=== PATIENT | male | born 1955 | race African-American/Black ===

== ENCOUNTER 2016-07-30 10:19 | Emergency (ER) | payer OTHER, MEDICARE ==
[~2016-07-30] VITALS: Ht 167.6 cm; Wt 100.9 kg
[~2016-07-30 10:19] MED LIST: ALLOPURINOL100 MG PO; AUGMENTIN875 MG PO; COREG25 M1 PO; COUMADIN4 MG PO; COUMADIN6 MG PO; DIGITEK250 MC2 PO; DIGOXIN250 MCG PO; DOXYCYCLINE HY100 MG PO; EXTRA STRENGTH500 M1 PO; FLEXERIL10 MG PO; FOSINOPRIL SODI20 MG PO; FUROSEMIDE40 MG PO; K-DUR20 MEQ PO; K-TAB10 MEQ PO; LOPRESSOR25 MG PO; METFORMIN HCL500 MG PO; METOLAZONE2.5 MG PO; METOPROLOL TART50 MG PO; POTASSIUM CHLO20 ME1 PO; SIMVASTATIN80 MG PO; SOTALOL80 MG PO; TESSALON PERLE100 MG PO; TYLENOL REGULA325 MG PO; ULTRAM50 MG PO; VITAMIN D1000 INTUN PO; ZITHROMAX500 MG PO
[2016-07-30] MEDS ORDERED: SOTALOL120 MG PO (11:09)
[2016-07-30] MEDS ORDERED: ALL DAY ALLERGY10 M3 PO (11:12)
[2016-07-30] MEDS ORDERED: MEDROL DOSEPAK4 MG PO (12:23)
[2016-07-30 12:32] VITALS: BP 93/58
== END 2016-07-30 12:34 | disposition home or self-care (01) ==
LOC: EME 10:19
DX: M25.531 Pain in right wrist (principal)
CPT/HCPCS: 73110; 99281; 99284; J7512

== ENCOUNTER 2017-03-28 21:22 | Emergency (ER) | payer OTHER, MEDICARE ==
[~2017-03-28] VITALS: Ht 167.6 cm; Wt 95.2 kg
[~2017-03-28 21:22] MED LIST changes: +ALL DAY ALLERGY10 M3 PO; +MEDROL DOSEPAK4 MG PO; +SOTALOL120 MG PO
[2017-03-28 22:45] LABS: HEMATOCRIT 38.7 % (38.0-50.0); MCH 27.2 PG (29.0-34.0); MCV 87.8 FL (86-99); MEAN PLAT.VOLUME 11.6 uM^3 (9.0-12.4); PLATELET COUNT 122 K/uL (156-360); RBC DIS.WIDTH-CV 18.2 % (11.8-14.6); RBC DIS.WIDTH-SD 58.4 % (39-53); RED BLOOD COUNT 4.41 M/uL (4.00-5.50); WHITE BLOOD COUNT 8.4 K/uL (4.1-10.2)
[2017-03-28 22:50] LABS: INTER. NORMALIZED RATIO 2.6
[2017-03-28 22:53] LABS: PTT 35.3 SEC (25-37)
[2017-03-28 23:00] LABS: CHLORIDE 102 mEq/L (99-109); SODIUM 139 mEq/L (136-147)
[2017-03-28 23:01] LABS: GLUCOSE 108 mg/dL (70-99)
[2017-03-28 23:03] LABS: ANION GAP 9 MEQ/L (2-14)
[2017-03-28 23:05] LABS: GFR ESTIMATE (CALCULATED) 42 mL/min/
[2017-03-28 23:06] LABS: UREA NITROGEN (BUN) 36 mg/dL (9-23)
[2017-03-28 23:13] LABS: TROP-I INTERPRETATION NEGATIVE; TROPONIN-I < 0.01 ng/mL (0.0-0.30)
[2017-03-28] MEDS ORDERED: GUAIFEN-CODEINE5 ML PO (23:25)
[2017-03-29 00:07] VITALS: BP 89/65
== END 2017-03-29 00:07 | disposition home or self-care (01) ==
LOC: EME 21:22
DX: R05 Cough (principal); J02.9 Acute pharyngitis, unspecified; R09.89 Other specified symptoms and signs involving the circulatory and respiratory systems; I10 Essential (primary) hypertension; E78.5 Hyperlipidemia, unspecified; E11.9 Type 2 diabetes mellitus without complications; Z79.84 Long term (current) use of oral hypoglycemic drugs; Z79.01 Long term (current) use of anticoagulants; Z95.811 Presence of heart assist device; Z87.891 Personal history of nicotine dependence
CPT/HCPCS: 71020; 80048; 80162; 83880; 84484; 85027; 85610; 85730; 99281; 99284; J1940

== ENCOUNTER 2017-04-04 15:22 | Inpatient (IN) | payer OTHER, MEDICARE ==
[~2017-04-04] VITALS: Ht 167.6 cm; Wt 94.6 kg
[~2017-04-04 15:22] MED LIST changes: +GUAIFEN-CODEINE5 ML PO
[2017-04-04] MEDS ORDERED: METFORMIN HCL500 MG PO (16:01)
[2017-04-04 16:59] LABS: HEMATOCRIT 33.5 % (38.0-50.0); MCH 27.6 PG (29.0-34.0); MCHC 31.9 G/DL (30.0-36.0); MCV 86.6 FL (86-99); MEAN PLAT.VOLUME 11.3 uM^3 (9.0-12.4); PLATELET COUNT 137 K/uL (156-360); RBC DIS.WIDTH-SD 56.7 % (39-53); RED BLOOD COUNT 3.87 M/uL (4.00-5.50); WHITE BLOOD COUNT 7.9 K/uL (4.1-10.2)
[2017-04-04 17:09] LABS: CHLORIDE 99 mEq/L (99-109); POTASSIUM 5.8 mEq/L (3.7-5.4); SODIUM 134 mEq/L (136-147)
[2017-04-04 17:11] LABS: GLUCOSE 112 mg/dL (70-99)
[2017-04-04 17:12] LABS: ANION GAP 13 MEQ/L (2-14)
[2017-04-04 17:14] LABS: ALKALINE PHOSPHATASE 86 IU/L (3-129)
[2017-04-04 17:15] LABS: GFR ESTIMATE (CALCULATED) 20 mL/min/
[2017-04-04 17:17] LABS: UREA NITROGEN (BUN) 99 mg/dL (9-23)
[2017-04-04 17:18] LABS: LIPASE 65 U/L (1.0-51.0)
[2017-04-04 17:20] LABS: TROP-I INTERPRETATION NEGATIVE; TROPONIN-I < 0.01 ng/mL (0.0-0.30)
[2017-04-04] MEDS ORDERED: COUMADIN2 MG PO (17:49)
[2017-04-04] MEDS ORDERED: POTASSIUM CHLO20 ME1 PO (17:51)
[2017-04-04] MEDS ORDERED: CODEINE-GUAIFE120 ML PO (17:55)
[2017-04-04 22:11] LABS: INTER. NORMALIZED RATIO 3.6; PROTHROMBIN TIME 41.5 SEC (10.2-12.9)
[2017-04-05] VITALS (8 sets, daily range): BP systolic 82–143; BP diastolic 50–69
[2017-04-05 03:25] LABS: ADD MIUA? YES; BILIRUBIN NEGATIVE; BLOOD NEGATIVE; COLOR YELLOW ((YELLOW)); GLUCOSE (STRIP) NEGATIVE; KETONES NEGATIVE; LEUKOCYTES NEGATIVE; NITRITE NEGATIVE; PROTEIN (STRIP) NEGATIVE; SPECIFIC GRAVITY 1.014 (1.000-1.030)
[2017-04-05 05:02] LABS: BACTERIA RARE /HPF; EPITHELIAL CELLS RARE /HPF; HYALINE CASTS 15-20 /LPF; MUCUS TRACE /LPF; RED BLOOD CELLS 0-5 /HPF (0-5); UCUL ADDED? NO; UNCLASSIFIED CASTS 0-5 /LPF; WHITE BLOOD CELLS 0-5 /HPF (0-5)
[2017-04-05 05:51] LABS: HEMATOCRIT 34.2 % (38.0-50.0); MCH 27.8 PG (29.0-34.0); MCHC 31.9 G/DL (30.0-36.0); MCV 87.2 FL (86-99); MEAN PLAT.VOLUME 12.2 uM^3 (9.0-12.4); PLATELET COUNT 135 K/uL (156-360); RBC DIS.WIDTH-CV 18.3 % (11.8-14.6); RBC DIS.WIDTH-SD 58.2 % (39-53); RED BLOOD COUNT 3.92 M/uL (4.00-5.50); WHITE BLOOD COUNT 8.1 K/uL (4.1-10.2)
[2017-04-05 06:20] LABS: GLUCOSE 109 mg/dL (70-99)
[2017-04-05 06:21] LABS: ANION GAP 12 MEQ/L (2-14); CHLORIDE 100 MEQ/L (99-109); GFR ESTIMATE (CALCULATED) 22 mL/min/; SAMPLE HEMOLYSIS CHECK 0; SAMPLE ICTERIC CHECK 0; SAMPLE LIPEMIA CHECK 0; SODIUM 137 MEQ/L (136-147); UREA NITROGEN (BUN) 103 mg/dL (9-23)
[2017-04-05 08:51] LABS: TROP-I INTERPRETATION NEGATIVE; TROPONIN-I < 0.01 ng/mL (0.0-0.30)
[2017-04-05 14:32] LABS: INTER. NORMALIZED RATIO 4.3; PROTHROMBIN TIME 49.9 SEC (10.2-12.9)
[2017-04-05 14:55] LABS: TROP-I INTERPRETATION NEGATIVE; TROPONIN-I 0.01 ng/mL (0.0-0.30)
[2017-04-05 16:52] LABS: POINT-OF-CARE METER ID UU13113725
[2017-04-05 20:18] LABS: TROP-I INTERPRETATION NEGATIVE; TROPONIN-I 0.01 ng/mL (0.0-0.30)
[2017-04-05 21:30] LABS: POINT-OF-CARE METER ID UU13113725
[2017-04-06 04:49] VITALS: BP 128/56
[2017-04-06 06:23] LABS: POINT-OF-CARE METER ID UU13113725
[2017-04-06 06:46] LABS: BASOPHIL COUNT 0.1 K/uL (0-0.1); EOSINOPHIL (%) 0.2 % (0-5); HEMATOCRIT 36.9 % (38.0-50.0); IMMATURE GRANULOCYTE (%) 0.5 % (0.0-0.7); IMMATURE GRANULOCYTE COUNT 0.1 K/uL; LYMPHOCYTE COUNT 1.3 K/uL (1.0-2.8); MCH 26.6 PG (29.0-34.0); MCHC 30.6 G/DL (30.0-36.0); MCV 86.8 FL (86-99); MEAN PLAT.VOLUME 12.4 uM^3 (9.0-12.4); MONOCYTE (%) 9.4 % (3-12); MONOCYTE COUNT 0.9 K/uL (0-0.8); NEUTROPHIL (%) 75.6 % (45-76); PLATELET COUNT 154 K/uL (156-360); RBC DIS.WIDTH-CV 18.3 % (11.8-14.6); RBC DIS.WIDTH-SD 58.3 % (39-53); RED BLOOD COUNT 4.25 M/uL (4.00-5.50); WHITE BLOOD COUNT 9.2 K/uL (4.1-10.2)
[2017-04-06 06:57] LABS: INTER. NORMALIZED RATIO 4.5
[2017-04-06 07:07] LABS: ALKALINE PHOSPHATASE 82 IU/L (3-129); ANION GAP 15 MEQ/L (2-14); CHLORIDE 100 MEQ/L (99-109); GFR ESTIMATE (CALCULATED) 28 mL/min/; GLUCOSE 130 mg/dL (70-99); MAGNESIUM 2.6 mg/dl (1.3-2.7); POTASSIUM 4.6 MEQ/L (3.7-5.4); SAMPLE HEMOLYSIS CHECK 0; SAMPLE ICTERIC CHECK 0; SAMPLE LIPEMIA CHECK 0; SODIUM 137 MEQ/L (136-147); TOTAL BILIRUBIN 1.2 MG/DL (0.0-1.0); UREA NITROGEN (BUN) 98 mg/dL (9-23)
[2017-04-06 09:08] VITALS: BP 110/63
[2017-04-06 11:12] VITALS: BP 101/68
[2017-04-06 11:50] LABS: POINT-OF-CARE METER ID UU13113774
[2017-04-06 15:51] LABS: TROP-I INTERPRETATION NEGATIVE; TROPONIN-I < 0.01 ng/mL (0.0-0.30)
[2017-04-06 17:20] LABS: POINT-OF-CARE METER ID UU13113725
[2017-04-06 21:08] LABS: POINT-OF-CARE METER ID UU13113725
[2017-04-06 21:45] VITALS: BP 74/50
[2017-04-06 23:55] VITALS: BP 82/64
[2017-04-07 02:53] VITALS: BP 102/60
[2017-04-07 05:51] LABS: EOSINOPHIL (%) 0 % (0-5); HEMATOCRIT 37.1 % (38.0-50.0); IMMATURE GRANULOCYTE (%) 0.7 % (0.0-0.7); IMMATURE GRANULOCYTE COUNT 0.1 K/uL; INSTRUMENT ABS NEUTROPHIL CT 7.9 K/uL; LYMPHOCYTE COUNT 1.4 K/uL (1.0-2.8); MCH 26.6 PG (29.0-34.0); MCHC 31.3 G/DL (30.0-36.0); MCV 85.1 FL (86-99); MEAN PLAT.VOLUME 12.2 uM^3 (9.0-12.4); MONOCYTE (%) 9.8 % (3-12); NEUTROPHIL (%) 75.9 % (45-76); NEUTROPHIL COUNT 7.9 K/uL (1.8-6.4); PLATELET COUNT 167 K/uL (156-360); RBC DIS.WIDTH-CV 18.3 % (11.8-14.6); RBC DIS.WIDTH-SD 56.4 % (39-53); RED BLOOD COUNT 4.36 M/uL (4.00-5.50); WHITE BLOOD COUNT 10.4 K/uL (4.1-10.2)
[2017-04-07 05:53] LABS: POINT-OF-CARE METER ID UU13113774
[2017-04-07 06:15] LABS: ANION GAP 14 MEQ/L (2-14); CHLORIDE 100 MEQ/L (99-109); GFR ESTIMATE (CALCULATED) 36 mL/min/; GLUCOSE 128 mg/dL (70-99); POTASSIUM 4.4 MEQ/L (3.7-5.4); SAMPLE HEMOLYSIS CHECK 0; SAMPLE ICTERIC CHECK 0; SAMPLE LIPEMIA CHECK 0; SODIUM 136 MEQ/L (136-147); UREA NITROGEN (BUN) 91 mg/dL (9-23)
[2017-04-07 06:32] LABS: PROTHROMBIN TIME 55.6 SEC (10.2-12.9)
[2017-04-07 06:33] LABS: INTER. NORMALIZED RATIO 4.7
[2017-04-07 07:52] LABS: POINT-OF-CARE METER ID UU13113774
[2017-04-07 08:12] VITALS: BP 86/54
[2017-04-07 08:30] VITALS: BP 86/55
[2017-04-07 10:14] VITALS: BP 90/60
[2017-04-07 10:52] VITALS: BP 92/58
[2017-04-07 11:28] LABS: POINT-OF-CARE METER ID UU13113774
[2017-04-07 16:55] LABS: POINT-OF-CARE METER ID UU13113774
[2017-04-07 19:45] VITALS: BP 111/52
[2017-04-07 20:56] LABS: POINT-OF-CARE METER ID UU13113774
[2017-04-08] VITALS (7 sets, daily range): BP systolic 80–100; BP diastolic 54–65
[2017-04-08 06:21] LABS: POINT-OF-CARE METER ID UU13113725
[2017-04-08 06:39] LABS: HEMATOCRIT 37.5 % (38.0-50.0); MCH 27.1 PG (29.0-34.0); MCV 84.7 FL (86-99); MEAN PLAT.VOLUME 12.4 uM^3 (9.0-12.4); NRBC (%) 0.2 /100 WBC (0-0); PLATELET COUNT 175 K/uL (156-360); RBC DIS.WIDTH-CV 18.4 % (11.8-14.6); RBC DIS.WIDTH-SD 55.6 % (39-53); RED BLOOD COUNT 4.43 M/uL (4.00-5.50); WHITE BLOOD COUNT 10.2 K/uL (4.1-10.2)
[2017-04-08 06:41] LABS: INTER. NORMALIZED RATIO 4.3; PROTHROMBIN TIME 50.5 SEC (10.2-12.9)
[2017-04-08 07:01] LABS: TROP-I INTERPRETATION NEGATIVE; TROPONIN-I 0.02 ng/mL (0.0-0.30)
[2017-04-08 07:02] LABS: ANION GAP 12 MEQ/L (2-14); CHLORIDE 97 MEQ/L (99-109); GFR ESTIMATE (CALCULATED) 42 mL/min/; GLUCOSE 124 mg/dL (70-99); MAGNESIUM 2.3 mg/dl (1.3-2.7); POTASSIUM 3.7 MEQ/L (3.7-5.4); SAMPLE HEMOLYSIS CHECK 0; SAMPLE ICTERIC CHECK 0; SAMPLE LIPEMIA CHECK 0; SODIUM 136 MEQ/L (136-147); UREA NITROGEN (BUN) 82 mg/dL (9-23)
[2017-04-08 11:24] LABS: POINT-OF-CARE METER ID UU13113725
[2017-04-08 12:27] LABS: METH RESISTANT S AUREUS PCR NEGATIVE (NEGATIVE)
[2017-04-08 12:34] LABS: PROBE CHECK PASS; SPECIMEN PROCESSING CONTROL PASS
[2017-04-08 16:17] LABS: POINT-OF-CARE METER ID UU13113725
[2017-04-08 20:12] LABS: POINT-OF-CARE METER ID UU13113725
[2017-04-09 05:53] LABS: HEMATOCRIT 36.1 % (38.0-50.0); MCH 27.7 PG (29.0-34.0); MCHC 32.4 G/DL (30.0-36.0); MCV 85.5 FL (86-99); NRBC (%) 0.2 /100 WBC (0-0); RBC DIS.WIDTH-CV 18.4 % (11.8-14.6); RBC DIS.WIDTH-SD 55.8 % (39-53); RED BLOOD COUNT 4.22 M/uL (4.00-5.50); WHITE BLOOD COUNT 9.5 K/uL (4.1-10.2)
[2017-04-09 06:11] LABS: POINT-OF-CARE METER ID UU13113774
[2017-04-09 06:19] LABS: MEAN PLAT.VOLUME 12.1 uM^3 (9.0-12.4); PLATELET COUNT 152 K/uL (156-360)
[2017-04-09 06:20] LABS: PLAT.SUFFICIENCY ADEQUATE
[2017-04-09 06:35] LABS: ANION GAP 14 MEQ/L (2-14); CHLORIDE 99 MEQ/L (99-109); GFR ESTIMATE (CALCULATED) 57 mL/min/; GLUCOSE 99 mg/dL (70-99); POTASSIUM 3.6 MEQ/L (3.7-5.4); SAMPLE HEMOLYSIS CHECK 0; SAMPLE ICTERIC CHECK 0; SAMPLE LIPEMIA CHECK 0; SODIUM 141 MEQ/L (136-147); UREA NITROGEN (BUN) 62 mg/dL (9-23)
[2017-04-09 07:06] LABS: DIGOXIN 0.3 ng/mL (0.8-2.0)
[2017-04-09 07:12] VITALS: BP 90/60
[2017-04-09 08:53] LABS: INTERNAL CONTROL VALID? YES
[2017-04-09 11:08] VITALS: BP 125/84
[2017-04-09 11:33] LABS: POINT-OF-CARE METER ID UU13113774
[2017-04-09 12:11] VITALS: BP 92/58
[2017-04-09 15:15] VITALS: BP 106/58
[2017-04-09 16:20] LABS: POINT-OF-CARE METER ID UU13113774
[2017-04-09 18:51] VITALS: BP 104/73
[2017-04-09 21:06] LABS: POINT-OF-CARE METER ID UU13113725
[2017-04-09 23:38] VITALS: BP 130/63
[2017-04-10 01:22] VITALS: BP 96/61
[2017-04-10 02:04] LABS: CHLORIDE 98 mEq/L (99-109); POTASSIUM 3.8 mEq/L (3.7-5.4); SODIUM 139 mEq/L (136-147)
[2017-04-10 02:05] LABS: MAGNESIUM 2.2 mg/dL (1.3-2.7)
[2017-04-10 02:06] LABS: GLUCOSE 107 mg/dL (70-99)
[2017-04-10 02:08] LABS: ANION GAP 13 MEQ/L (2-14)
[2017-04-10 02:10] LABS: GFR ESTIMATE (CALCULATED) 57 mL/min/
[2017-04-10 02:11] LABS: UREA NITROGEN (BUN) 51 mg/dL (9-23)
[2017-04-10 06:22] LABS: POINT-OF-CARE METER ID UU13113725
[2017-04-10 06:36] LABS: INTER. NORMALIZED RATIO 2.3; PROTHROMBIN TIME 25.6 SEC (10.2-12.9)
[2017-04-10 06:51] LABS: ANION GAP 11 MEQ/L (2-14); CHLORIDE 99 MEQ/L (99-109); GFR ESTIMATE (CALCULATED) > 59 mL/min/; GLUCOSE 107 mg/dL (70-99); POTASSIUM 3.9 MEQ/L (3.7-5.4); SAMPLE HEMOLYSIS CHECK 0; SAMPLE ICTERIC CHECK 0; SAMPLE LIPEMIA CHECK 0; SODIUM 139 MEQ/L (136-147); UREA NITROGEN (BUN) 46 mg/dL (9-23)
[2017-04-10 06:55] VITALS: BP 124/87
[2017-04-10 11:03] VITALS: BP 86/60
[2017-04-10 11:30] LABS: POINT-OF-CARE METER ID UU13113725
[2017-04-10 15:18] VITALS: BP 82/61
[2017-04-10 16:40] LABS: POINT-OF-CARE METER ID UU13113725
[2017-04-10 20:05] VITALS: BP 81/59
[2017-04-10 20:15] LABS: POINT-OF-CARE METER ID UU13113725
[2017-04-11 00:33] VITALS: BP 79/47
[2017-04-11 05:10] VITALS: BP 86/59
[2017-04-11 07:07] LABS: EOSINOPHIL (%) 1.2 % (0-5); EOSINOPHIL COUNT 0.1 K/uL (0-0.3); HEMATOCRIT 34.6 % (38.0-50.0); IMMATURE GRANULOCYTE (%) 0.5 % (0.0-0.7); INSTRUMENT ABS NEUTROPHIL CT 6.5 K/uL; LYMPHOCYTE COUNT 1.5 K/uL (1.0-2.8); MCH 26.8 PG (29.0-34.0); MCHC 30.9 G/DL (30.0-36.0); MCV 86.7 FL (86-99); MONOCYTE (%) 7.7 % (3-12); MONOCYTE COUNT 0.7 K/uL (0-0.8); NEUTROPHIL (%) 73.8 % (45-76); NEUTROPHIL COUNT 6.5 K/uL (1.8-6.4); NRBC (%) 0.2 /100 WBC (0-0); PLATELET COUNT 157 K/uL (156-360); RBC DIS.WIDTH-CV 18.6 % (11.8-14.6); RBC DIS.WIDTH-SD 57.6 % (39-53); RED BLOOD COUNT 3.99 M/uL (4.00-5.50); WHITE BLOOD COUNT 8.9 K/uL (4.1-10.2)
[2017-04-11 07:15] LABS: INTER. NORMALIZED RATIO 2.4; PROTHROMBIN TIME 26.8 SEC (10.2-12.9)
[2017-04-11 07:34] LABS: ANION GAP 8 MEQ/L (2-14); CHLORIDE 98 MEQ/L (99-109); GFR ESTIMATE (CALCULATED) > 59 mL/min/; GLUCOSE 121 mg/dL (70-99); POTASSIUM 3.6 MEQ/L (3.7-5.4); SAMPLE HEMOLYSIS CHECK 0; SAMPLE ICTERIC CHECK 0; SAMPLE LIPEMIA CHECK 0; SODIUM 137 MEQ/L (136-147); UREA NITROGEN (BUN) 43 mg/dL (9-23)
[2017-04-11 07:52] LABS: POINT-OF-CARE METER ID UU13113774
[2017-04-11 08:20] VITALS: BP 78/46
[2017-04-11 11:24] LABS: POINT-OF-CARE METER ID UU13113725
[2017-04-11 12:00] VITALS: BP 74/60
[2017-04-11] MEDS ORDERED: BENZONATATE100 MG PO (15:15)
[2017-04-11] MEDS ORDERED: COUMADIN2 MG PO (15:15)
[2017-04-11] MEDS ORDERED: JANUVIA25 MG PO (15:15)
[2017-04-11] MEDS ORDERED: AMOX TR-K CLV1 EAC4 PO (15:15)
[2017-04-11 15:20] VITALS: BP 97/63
== END 2017-04-11 16:24 | disposition home or self-care (01) | DRG 871 ==
LOC: EME 15:22 → 5EAST 19:34 → EDOF 19:34 → ENRESERV 19:36 → 5EAST 22:09
PROVIDERS: Emergency Medicine; Hospitalist; Internal Medicine; Internal Medicine Cardiovascular Disease; Internal Medicine Nephrology; Physician Assistant Medical
DX: A40.3 Sepsis due to Streptococcus pneumoniae (principal); J13 Pneumonia due to Streptococcus pneumoniae; I50.23 Acute on chronic systolic (congestive) heart failure; I25.5 Ischemic cardiomyopathy; R79.1 Abnormal coagulation profile; I13.0 Hypertensive heart and chronic kidney disease with heart failure and stage 1 through stage 4 chronic kidney disease, or unspecified chronic kidney disease; N17.0 Acute kidney failure with tubular necrosis; I25.10 Atherosclerotic heart disease of native coronary artery without angina pectoris; E78.5 Hyperlipidemia, unspecified; J98.11 Atelectasis; J44.1 Chronic obstructive pulmonary disease with (acute) exacerbation; I42.0 Dilated cardiomyopathy; J44.0 Chronic obstructive pulmonary disease with (acute) lower respiratory infection; E66.9 Obesity, unspecified; I95.9 Hypotension, unspecified; M10.9 Gout, unspecified; E87.5 Hyperkalemia; R16.0 Hepatomegaly, not elsewhere classified; K40.90 Unilateral inguinal hernia, without obstruction or gangrene, not specified as recurrent; K57.30 Diverticulosis of large intestine without perforation or abscess without bleeding; R05 Cough; I48.2 Chronic atrial fibrillation; I47.2 Ventricular tachycardia; N18.3 Chronic kidney disease, stage 3 (moderate); E11.22 Type 2 diabetes mellitus with diabetic chronic kidney disease; Z79.899 Other long term (current) drug therapy; I25.2 Old myocardial infarction; I08.1 Rheumatic disorders of both mitral and tricuspid valves; Z95.810 Presence of automatic (implantable) cardiac defibrillator; D64.9 Anemia, unspecified; Z79.01 Long term (current) use of anticoagulants; Z68.33 Body mass index [BMI] 33.0-33.9, adult; Z79.84 Long term (current) use of oral hypoglycemic drugs; K76.1 Chronic passive congestion of liver
CPT/HCPCS: 71020; 71250; 74176; 80048; 80048 91; 80053; 80162; 81003; 82948; 83605; 83690; 83735; 83880; 84100; 84484; 85025; 85027; 85610; 87040; 87070; 87205; 87449; 87641; 90686; 92610 GN; 93005; 93306; 94010; 94640; 94640 76; 94799; 99202; 99281; 99285; J0295; J0456; J0696; J1160; J1815; J1940; J7030; J7050; J7120

== ENCOUNTER 2017-04-29 20:40 | Inpatient (IN) | payer OTHER, MEDICARE ==
[~2017-04-29] VITALS: Ht 167.6 cm; Wt 89.6 kg
[~2017-04-29 20:40] MED LIST changes: +AMOX TR-K CLV1 EAC4 PO; +BENZONATATE100 MG PO; +BUMETANIDE1 MG PO; +CODEINE-GUAIFE120 ML PO; +COUMADIN2 MG PO; +DIGOX125 MCG PO; +JANUVIA25 MG PO; +WARFARIN SODIUM2 MG PO
[2017-04-29 21:28] LABS: CHLORIDE 82 mEq/L (99-109)
[2017-04-29 21:29] LABS: POTASSIUM 5.5 mEq/L (3.7-5.4); SODIUM 123 mEq/L (136-147)
[2017-04-29 21:30] LABS: GLUCOSE 141 mg/dL (70-99)
[2017-04-29 21:31] LABS: ANION GAP 12 MEQ/L (2-14)
[2017-04-29 21:33] LABS: GFR ESTIMATE (CALCULATED) 39 mL/min/
[2017-04-29 21:34] LABS: UREA NITROGEN (BUN) 76 mg/dL (9-23)
[2017-04-29 21:49] LABS: HEMATOCRIT 39.3 % (38.0-50.0); MCH 27.8 PG (29.0-34.0); MCHC 32.1 G/DL (30.0-36.0); MCV 86.8 FL (86-99); PLATELET COUNT 98 K/uL (156-360); RBC DIS.WIDTH-CV 21.6 % (11.8-14.6); RBC DIS.WIDTH-SD 66.2 % (39-53); RED BLOOD COUNT 4.53 M/uL (4.00-5.50); WHITE BLOOD COUNT 9.4 K/uL (4.1-10.2)
[2017-04-29 21:55] LABS: INTER. NORMALIZED RATIO 3.5; PROTHROMBIN TIME 39.6 SEC (10.2-12.9)
[2017-04-29 22:10] LABS: DIGOXIN 0.7 ng/mL (0.8-2.0)
[2017-04-29 22:11] LABS: TROP-I INTERPRETATION NEGATIVE; TROPONIN-I < 0.01 ng/mL (0.0-0.30)
[2017-04-29 22:19] LABS: CHLORIDE 82 mEq/L (99-109); POTASSIUM 5.4 mEq/L (3.7-5.4); SODIUM 124 mEq/L (136-147)
[2017-04-29 22:21] LABS: GLUCOSE 125 mg/dL (70-99)
[2017-04-29 22:22] LABS: ANION GAP 16 MEQ/L (2-14)
[2017-04-29 22:25] LABS: GFR ESTIMATE (CALCULATED) 44 mL/min/
[2017-04-29 22:26] LABS: UREA NITROGEN (BUN) 75 mg/dL (9-23)
[2017-04-29 23:29] LABS: ADD MIUA? YES; BILIRUBIN NEGATIVE; BLOOD NEGATIVE; COLOR AMBER ((YELLOW)); GLUCOSE (STRIP) NEGATIVE; KETONES NEGATIVE; LEUKOCYTES NEGATIVE; NITRITE NEGATIVE; PROTEIN (STRIP) 100; SPECIFIC GRAVITY 1.012 (1.000-1.030)
[2017-04-29 23:37] LABS: BACTERIA RARE /HPF; EPITHELIAL CELLS RARE /HPF; HYALINE CASTS 40-50 /LPF; MUCUS TRACE /LPF
[2017-04-30] VITALS (17 sets, daily range): BP systolic 77–116; BP diastolic 27–77
[2017-04-30 05:40] LABS: INTER. NORMALIZED RATIO 3.5; PROTHROMBIN TIME 39.9 SEC (10.2-12.9)
[2017-04-30 06:13] LABS: ANION GAP 11 MEQ/L (2-14); GFR ESTIMATE (CALCULATED) 44 mL/min/; GLUCOSE 126 mg/dL (70-99); MAGNESIUM 2.4 mg/dl (1.3-2.7); POTASSIUM 4.6 MEQ/L (3.7-5.4); SAMPLE HEMOLYSIS CHECK 0; SAMPLE ICTERIC CHECK 2; SAMPLE LIPEMIA CHECK 0; SODIUM 125 MEQ/L (136-147); UREA NITROGEN (BUN) 83 mg/dL (9-23)
[2017-04-30 06:14] LABS: CHLORIDE 83 MEQ/L (99-109)
[2017-04-30 07:12] LABS: DIGOXIN 0.6 ng/mL (0.8-2.0)
[2017-04-30 08:43] LABS: POINT-OF-CARE METER ID UU14314088; POINT-OF-CARE USER ID ENVKC36
[2017-04-30 11:55] LABS: POINT-OF-CARE METER ID UU14314088; POINT-OF-CARE USER ID ENVKC36
[2017-04-30 13:10] LABS: METH RESISTANT S AUREUS PCR NEGATIVE (NEGATIVE)
[2017-04-30 13:18] LABS: PROBE CHECK PASS; SPECIMEN PROCESSING CONTROL PASS
[2017-04-30 16:49] LABS: POINT-OF-CARE METER ID UU14314082
[2017-04-30 21:30] LABS: POINT-OF-CARE METER ID UU14314082
[2017-05-01] VITALS (25 sets, daily range): BP systolic 74–108; BP diastolic 43–70
[2017-05-01 04:28] LABS: HEMATOCRIT 35.3 % (38.0-50.0); MCHC 32.9 G/DL (30.0-36.0); MCV 85.1 FL (86-99); NRBC (%) 0.6 /100 WBC (0-0); RBC DIS.WIDTH-CV 21.9 % (11.8-14.6); RBC DIS.WIDTH-SD 64.4 % (39-53); RED BLOOD COUNT 4.15 M/uL (4.00-5.50); WHITE BLOOD COUNT 7.2 K/uL (4.1-10.2)
[2017-05-01 04:37] LABS: CHLORIDE 88 mEq/L (99-109); SODIUM 127 mEq/L (136-147)
[2017-05-01 04:38] LABS: MAGNESIUM 2.5 mg/dL (1.3-2.7)
[2017-05-01 04:39] LABS: POTASSIUM 5.8 mEq/L (3.7-5.4)
[2017-05-01 04:40] LABS: GLUCOSE 113 mg/dL (70-99)
[2017-05-01 04:41] LABS: ANION GAP 12 MEQ/L (2-14); TOTAL BILIRUBIN 5.7 mg/dL (0.0-1.0)
[2017-05-01 04:43] LABS: ALKALINE PHOSPHATASE 144 IU/L (3-129); GFR ESTIMATE (CALCULATED) 47 mL/min/
[2017-05-01 04:44] LABS: UREA NITROGEN (BUN) 87 mg/dL (9-23)
[2017-05-01 05:05] LABS: EOSINOPHIL (%) 0.4 % (0-5); IMMATURE GRANULOCYTE (%) 1.1 % (0.0-0.7); IMMATURE GRANULOCYTE COUNT 0.1 K/uL; INSTRUMENT ABS NEUTROPHIL CT 5.1 K/uL; LYMPHOCYTE COUNT 1.1 K/uL (1.0-2.8); MONOCYTE (%) 12.7 % (3-12); MONOCYTE COUNT 0.9 K/uL (0-0.8); NEUTROPHIL (%) 70.7 % (45-76); NEUTROPHIL COUNT 5.1 K/uL (1.8-6.4); PLATELET COUNT 79 K/uL (156-360)
[2017-05-01 06:00] LABS: PROTHROMBIN TIME 45.9 SEC (10.2-12.9)
[2017-05-01 11:36] LABS: POINT-OF-CARE METER ID UU14162636
[2017-05-01 14:04] LABS: ANION GAP 9 MEQ/L (2-14); CHLORIDE 89 MEQ/L (99-109); GFR ESTIMATE (CALCULATED) 44 mL/min/; GLUCOSE 110 mg/dL (70-99); SAMPLE HEMOLYSIS CHECK 0; SAMPLE ICTERIC CHECK 1; SAMPLE LIPEMIA CHECK 0; SODIUM 133 MEQ/L (136-147); UREA NITROGEN (BUN) 84 mg/dL (9-23)
[2017-05-01 14:08] LABS: POTASSIUM 3.8 MEQ/L (3.7-5.4)
[2017-05-01 16:20] LABS: POINT-OF-CARE METER ID UU14314083
[2017-05-01 21:31] LABS: POINT-OF-CARE METER ID UU14314083
[2017-05-02] VITALS (25 sets, daily range): BP systolic 73–126; BP diastolic 43–81
[2017-05-02 05:12] LABS: EOSINOPHIL (%) 0.7 % (0-5); EOSINOPHIL COUNT 0.1 K/uL (0-0.3); HEMATOCRIT 35.8 % (38.0-50.0); IMMATURE GRANULOCYTE (%) 0.4 % (0.0-0.7); INSTRUMENT ABS NEUTROPHIL CT 5.6 K/uL; LYMPHOCYTE COUNT 1.2 K/uL (1.0-2.8); MCH 27.6 PG (29.0-34.0); MCHC 31.8 G/DL (30.0-36.0); MCV 86.7 FL (86-99); MEAN PLAT.VOLUME 13.3 uM^3 (9.0-12.4); MONOCYTE (%) 14.2 % (3-12); MONOCYTE COUNT 1.1 K/uL (0-0.8); NEUTROPHIL COUNT 5.6 K/uL (1.8-6.4); RBC DIS.WIDTH-CV 22.4 % (11.8-14.6); RBC DIS.WIDTH-SD 67.1 % (39-53); RED BLOOD COUNT 4.13 M/uL (4.00-5.50); WHITE BLOOD COUNT 8.1 K/uL (4.1-10.2)
[2017-05-02 05:15] LABS: PLATELET COUNT 117 K/uL (156-360)
[2017-05-02 05:37] LABS: CHLORIDE 93 mEq/L (99-109); POTASSIUM 3.3 mEq/L (3.7-5.4); SODIUM 134 mEq/L (136-147)
[2017-05-02 05:38] LABS: GLUCOSE 125 mg/dL (70-99)
[2017-05-02 05:40] LABS: ANION GAP 10 MEQ/L (2-14)
[2017-05-02 05:42] LABS: GFR ESTIMATE (CALCULATED) 44 mL/min/
[2017-05-02 05:43] LABS: UREA NITROGEN (BUN) 81 mg/dL (9-23)
[2017-05-02 09:54] LABS: INTER. NORMALIZED RATIO 3.5; PROTHROMBIN TIME 40.2 SEC (10.2-12.9)
[2017-05-02 12:59] LABS: POINT-OF-CARE METER ID UU14314082
[2017-05-02 14:03] LABS: MAGNESIUM 2.5 mg/dL (1.3-2.7)
[2017-05-02 17:35] LABS: POINT-OF-CARE METER ID UU14314082
[2017-05-02 20:53] LABS: MAGNESIUM 2.5 mg/dl (1.3-2.7); POTASSIUM 4.2 MEQ/L (3.7-5.4)
[2017-05-02 21:42] LABS: POINT-OF-CARE METER ID UU13113803
[2017-05-03] VITALS (12 sets, daily range): BP systolic 87–128; BP diastolic 59–101
[2017-05-03 05:20] LABS: EOSINOPHIL (%) 0.9 % (0-5); EOSINOPHIL COUNT 0.1 K/uL (0-0.3); HEMATOCRIT 40.1 % (38.0-50.0); IMMATURE GRANULOCYTE (%) 0.5 % (0.0-0.7); LYMPHOCYTE COUNT 1.4 K/uL (1.0-2.8); MCH 27.3 PG (29.0-34.0); MCHC 30.7 G/DL (30.0-36.0); MCV 88.9 FL (86-99); MONOCYTE (%) 14.1 % (3-12); MONOCYTE COUNT 1.2 K/uL (0-0.8); NEUTROPHIL (%) 68.7 % (45-76); PLATELET COUNT 112 K/uL (156-360); RBC DIS.WIDTH-CV 22.7 % (11.8-14.6); RBC DIS.WIDTH-SD 71.3 % (39-53); RED BLOOD COUNT 4.51 M/uL (4.00-5.50); WHITE BLOOD COUNT 8.7 K/uL (4.1-10.2)
[2017-05-03 05:21] LABS: INTER. NORMALIZED RATIO 3.1; PROTHROMBIN TIME 35.1 SEC (10.2-12.9)
[2017-05-03 05:42] LABS: ANION GAP 9 MEQ/L (2-14); CHLORIDE 94 MEQ/L (99-109); GFR ESTIMATE (CALCULATED) 47 mL/min/; GLUCOSE 107 mg/dL (70-99); POTASSIUM 4.3 MEQ/L (3.7-5.4); SAMPLE HEMOLYSIS CHECK 0; SAMPLE ICTERIC CHECK 1; SAMPLE LIPEMIA CHECK 0; SODIUM 134 MEQ/L (136-147); UREA NITROGEN (BUN) 69 mg/dL (9-23)
[2017-05-03 12:13] LABS: POINT-OF-CARE METER ID UU14314082
[2017-05-03 17:07] LABS: POINT-OF-CARE METER ID UU14314082
[2017-05-03 21:31] LABS: POINT-OF-CARE METER ID UU13113748
[2017-05-04] VITALS (7 sets, daily range): BP systolic 81–91; BP diastolic 60–72
[2017-05-04 05:44] LABS: POINT-OF-CARE METER ID UU14162636
[2017-05-04 05:53] LABS: EOSINOPHIL (%) 0.6 % (0-5); EOSINOPHIL COUNT 0.1 K/uL (0-0.3); HEMATOCRIT 39.4 % (38.0-50.0); IMMATURE GRANULOCYTE (%) 0.6 % (0.0-0.7); IMMATURE GRANULOCYTE COUNT 0.1 K/uL; INSTRUMENT ABS NEUTROPHIL CT 5.7 K/uL; LYMPHOCYTE COUNT 1.3 K/uL (1.0-2.8); MCH 27.8 PG (29.0-34.0); MCHC 31.2 G/DL (30.0-36.0); MCV 88.9 FL (86-99); MONOCYTE (%) 12.5 % (3-12); NEUTROPHIL (%) 69.9 % (45-76); NEUTROPHIL COUNT 5.7 K/uL (1.8-6.4); RBC DIS.WIDTH-CV 23.1 % (11.8-14.6); RBC DIS.WIDTH-SD 73.6 % (39-53); RED BLOOD COUNT 4.43 M/uL (4.00-5.50); WHITE BLOOD COUNT 8.2 K/uL (4.1-10.2)
[2017-05-04 05:57] LABS: INTER. NORMALIZED RATIO 3.2; PROTHROMBIN TIME 37.1 SEC (10.2-12.9)
[2017-05-04 06:15] LABS: ANION GAP 10 MEQ/L (2-14); CHLORIDE 96 MEQ/L (99-109); GFR ESTIMATE (CALCULATED) 44 mL/min/; GLUCOSE 117 mg/dL (70-99); MAGNESIUM 2.6 mg/dl (1.3-2.7); POTASSIUM 4.2 MEQ/L (3.7-5.4); SAMPLE HEMOLYSIS CHECK 0; SAMPLE ICTERIC CHECK 1; SAMPLE LIPEMIA CHECK 0; SODIUM 136 MEQ/L (136-147); UREA NITROGEN (BUN) 68 mg/dL (9-23)
[2017-05-04 06:20] LABS: MEAN PLAT.VOLUME 13.4 uM^3 (9.0-12.4); PLAT.SUFFICIENCY DECREASED; PLATELET COUNT 104 K/uL (156-360)
[2017-05-04 11:49] LABS: POINT-OF-CARE METER ID UU14174217; POINT-OF-CARE USER ID 612031313
[2017-05-04 17:06] LABS: POINT-OF-CARE METER ID UU14174217; POINT-OF-CARE USER ID 612031313
[2017-05-04 21:34] LABS: POINT-OF-CARE METER ID UU14162636
[2017-05-05] VITALS: BP 104/76
[2017-05-05 04:00] VITALS: BP 91/74
[2017-05-05 05:41] LABS: INTER. NORMALIZED RATIO 3.9; PROTHROMBIN TIME 45.3 SEC (10.2-12.9)
[2017-05-05 06:01] LABS: ALKALINE PHOSPHATASE 132 IU/L (3-129); DIRECT BILIRUBIN 2.6 mg/dL (0.0-0.3); TOTAL BILIRUBIN 5.3 MG/DL (0.0-1.0)
[2017-05-05 08:30] VITALS: BP 98/68
[2017-05-05 08:45] LABS: POINT-OF-CARE METER ID UU13113803
[2017-05-05 11:49] LABS: POINT-OF-CARE METER ID UU14314082
[2017-05-05 12:00] VITALS: BP 105/76
[2017-05-05] MEDS ORDERED: COREG6.25 M1 PO (13:43)
[2017-05-05] MEDS ORDERED: SAMSCA30 MG PO (13:45)
[2017-05-05] MEDS ORDERED: BUMETANIDE1 MG PO (13:45)
[2017-05-05] MEDS ORDERED: DOCUSATE SODIU100 MG PO (13:46)
== END 2017-05-05 15:07 | disposition home health service (06) | DRG 291 ==
LOC: EME 20:40 → 4WEST 23:33 → EDOF 23:33 → ENRESERV 23:36 → 4EAST 04-30 01:31 → ENRESERV 04-30 11:02 → 4WEST 04-30 11:34
PROVIDERS: Hospitalist; Internal Medicine Critical Care Medicine; Internal Medicine Nephrology; Physician Assistant; Physician Assistant Medical
DX: I50.23 Acute on chronic systolic (congestive) heart failure (principal); J18.9 Pneumonia, unspecified organism; I48.2 Chronic atrial fibrillation; I25.5 Ischemic cardiomyopathy; E87.1 Hypo-osmolality and hyponatremia; N18.3 Chronic kidney disease, stage 3 (moderate); I08.1 Rheumatic disorders of both mitral and tricuspid valves; N17.9 Acute kidney failure, unspecified; I47.2 Ventricular tachycardia; M10.9 Gout, unspecified; E78.5 Hyperlipidemia, unspecified; E66.9 Obesity, unspecified; I44.7 Left bundle-branch block, unspecified; D69.6 Thrombocytopenia, unspecified; E11.22 Type 2 diabetes mellitus with diabetic chronic kidney disease; E87.6 Hypokalemia; I27.20 Pulmonary hypertension, unspecified; I95.89 Other hypotension; I13.0 Hypertensive heart and chronic kidney disease with heart failure and stage 1 through stage 4 chronic kidney disease, or unspecified chronic kidney disease; E87.5 Hyperkalemia; E87.8 Other disorders of electrolyte and fluid balance, not elsewhere classified; Z95.810 Presence of automatic (implantable) cardiac defibrillator; Z79.01 Long term (current) use of anticoagulants; Z79.84 Long term (current) use of oral hypoglycemic drugs; I25.2 Old myocardial infarction; Z87.01 Personal history of pneumonia (recurrent); R79.1 Abnormal coagulation profile
CPT/HCPCS: 71020; 80048; 80048 91; 80053; 80076; 80162; 81003; 82948; 83735; 83880; 84100; 84132 91; 84484; 85025; 85027; 85610; 87641; 93005; 99281; 99285; J1250; J1815; J1940

== ENCOUNTER 2017-05-18 11:39 | Inpatient (IN) | payer OTHER, MEDICARE ==
[2017-05-18] VITALS (8 sets, daily range): BP systolic 71–91; BP diastolic 52–65
[~2017-05-18] VITALS: Ht 167.6 cm; Wt 94.8 kg
[~2017-05-18 11:39] MED LIST changes: +COREG6.25 M1 PO; +DOCUSATE SODIU100 MG PO; +SAMSCA30 MG PO
[2017-05-18 12:29] LABS: EOSINOPHIL (%) 1.7 % (0-5); EOSINOPHIL COUNT 0.1 K/uL (0-0.3); HEMATOCRIT 38.2 % (38.0-50.0); IMMATURE GRANULOCYTE (%) 0.7 % (0.0-0.7); IMMATURE GRANULOCYTE COUNT 0.1 K/uL; INSTRUMENT ABS NEUTROPHIL CT 5.1 K/uL; LYMPHOCYTE COUNT 1.4 K/uL (1.0-2.8); MCH 28.6 PG (29.0-34.0); MCHC 31.9 G/DL (30.0-36.0); MCV 89.5 FL (86-99); MONOCYTE (%) 12.3 % (3-12); MONOCYTE COUNT 0.9 K/uL (0-0.8); NEUTROPHIL (%) 66.5 % (45-76); NEUTROPHIL COUNT 5.1 K/uL (1.8-6.4); PLATELET COUNT 97 K/uL (156-360); RBC DIS.WIDTH-CV 23.5 % (11.8-14.6); RBC DIS.WIDTH-SD 75.7 % (39-53); RED BLOOD COUNT 4.27 M/uL (4.00-5.50); WHITE BLOOD COUNT 7.6 K/uL (4.1-10.2)
[2017-05-18 12:33] LABS: CHLORIDE 95 mEq/L (99-109); POTASSIUM 3.9 mEq/L (3.7-5.4); SODIUM 133 mEq/L (136-147)
[2017-05-18 12:34] LABS: MAGNESIUM 3.2 mg/dL (1.3-2.7)
[2017-05-18 12:36] LABS: GLUCOSE 113 mg/dL (70-99)
[2017-05-18 12:37] LABS: ANION GAP 13 MEQ/L (2-14)
[2017-05-18 12:38] LABS: TOTAL BILIRUBIN 2.8 mg/dL (0.0-1.0)
[2017-05-18 12:39] LABS: ALKALINE PHOSPHATASE 133 IU/L (3-129); GFR ESTIMATE (CALCULATED) 16 mL/min/
[2017-05-18 12:40] LABS: TROP-I INTERPRETATION NEGATIVE; TROPONIN-I 0.02 ng/mL (0.0-0.30)
[2017-05-18 12:41] LABS: UREA NITROGEN (BUN) 85 mg/dL (9-23)
[2017-05-18] MEDS ORDERED: COREG6.25 M1 PO (14:45)
[2017-05-18] MEDS ORDERED: BUMEX1 MG PO ×2 (14:46→14:47)
[2017-05-18] MEDS ORDERED: COLACE100 MG PO (14:48)
[2017-05-18] MEDS ORDERED: COUMADIN2 MG PO (14:49)
[2017-05-18 15:10] LABS: ADD MIUA? YES; BILIRUBIN NEGATIVE; BLOOD MODERATE; COLOR AMBER ((YELLOW)); GLUCOSE (STRIP) NEGATIVE; KETONES NEGATIVE; LEUKOCYTES NEGATIVE; NITRITE NEGATIVE; PROTEIN (STRIP) 100; SPECIFIC GRAVITY 1.013 (1.000-1.030)
[2017-05-18 15:38] LABS: BACTERIA 1+ /HPF; CASTS PRESENT /LPF; CRYSTALS NONE SEEN; EPITHELIAL CELLS RARE /HPF; MUCUS RARE /LPF; UCUL ADDED? YES; WHITE BLOOD CELLS 15-20 /HPF (0-5)
[2017-05-18 15:39] LABS: FINE GRANULAR CASTS 0-5 /LPF
[2017-05-18 19:48] LABS: METH RESISTANT S AUREUS PCR NEGATIVE (NEGATIVE)
[2017-05-18 19:54] LABS: PROBE CHECK PASS; SPECIMEN PROCESSING CONTROL PASS
[2017-05-18 23:55] LABS: POINT-OF-CARE METER ID UU14174217
[2017-05-19] VITALS (29 sets, daily range): BP systolic 68–100; BP diastolic 41–71
[2017-05-19 00:05] LABS: INTER. NORMALIZED RATIO 2.5
[2017-05-19 05:01] LABS: POINT-OF-CARE METER ID UU14174217
[2017-05-19 05:46] LABS: CHLORIDE 96 mEq/L (99-109); POTASSIUM 4.2 mEq/L (3.7-5.4); SODIUM 132 mEq/L (136-147)
[2017-05-19 05:47] LABS: MAGNESIUM 3.2 mg/dL (1.3-2.7)
[2017-05-19 05:48] LABS: GLUCOSE 97 mg/dL (70-99)
[2017-05-19 05:49] LABS: ANION GAP 16 MEQ/L (2-14)
[2017-05-19 05:52] LABS: GFR ESTIMATE (CALCULATED) 17 mL/min/
[2017-05-19 05:53] LABS: UREA NITROGEN (BUN) 88 mg/dL (9-23)
[2017-05-19 06:00] LABS: DIGOXIN 0.5 ng/mL (0.8-2.0)
[2017-05-19 06:25] LABS: ANISOCYTOSIS 2+; EOSINOPHIL (%) 1.3 % (0-5); EOSINOPHIL COUNT 0.1 K/uL (0-0.3); HEMATOCRIT 40.1 % (38.0-50.0); IMMATURE GRANULOCYTE (%) 0.7 % (0.0-0.7); IMMATURE GRANULOCYTE COUNT 0.1 K/uL; INSTRUMENT ABS NEUTROPHIL CT 4.7 K/uL; LYMPHOCYTE COUNT 1.3 K/uL (1.0-2.8); MACROCYTES 2+; MCH 28.2 PG (29.0-34.0); MCHC 31.4 G/DL (30.0-36.0); MCV 89.7 FL (86-99); MONOCYTE (%) 11.8 % (3-12); MONOCYTE COUNT 0.8 K/uL (0-0.8); NEUTROPHIL (%) 67.5 % (45-76); NEUTROPHIL COUNT 4.7 K/uL (1.8-6.4); PLAT.SUFFICIENCY DECREASED; PLATELET CLUMPS PRESENT - PLATELET COUNTS APPEARS DECREASED; PLATELET COUNT UNABLE TO REPORT K/uL (156-360); POIKILOCYTOSIS 1+; RBC DIS.WIDTH-CV 23.5 % (11.8-14.6); RBC DIS.WIDTH-SD 76.2 % (39-53); RED BLOOD COUNT 4.47 M/uL (4.00-5.50)
[2017-05-19 08:47] LABS: ALKALINE PHOSPHATASE 127 IU/L (3-129); SAMPLE HEMOLYSIS CHECK 2; SAMPLE ICTERIC CHECK 0; SAMPLE LIPEMIA CHECK 0
[2017-05-19 12:30] LABS: POINT-OF-CARE METER ID UU14162636
[2017-05-19 13:01] LABS: INTER. NORMALIZED RATIO 2.6; PROTHROMBIN TIME 30.3 SEC (10.2-12.9)
[2017-05-19 17:43] LABS: POINT-OF-CARE METER ID UU14162636
[2017-05-20] VITALS (32 sets, daily range): BP systolic 65–119; BP diastolic 36–85
[2017-05-20 00:13] LABS: POINT-OF-CARE METER ID UU14174217
[2017-05-20 04:52] LABS: CHLORIDE 96 mEq/L (99-109); POTASSIUM 3.8 mEq/L (3.7-5.4); SODIUM 127 mEq/L (136-147)
[2017-05-20 04:53] LABS: GLUCOSE 95 mg/dL (70-99)
[2017-05-20 04:55] LABS: ANION GAP 10 MEQ/L (2-14)
[2017-05-20 04:57] LABS: GFR ESTIMATE (CALCULATED) 18 mL/min/
[2017-05-20 04:58] LABS: UREA NITROGEN (BUN) 89 mg/dL (9-23)
[2017-05-20 05:03] LABS: INTER. NORMALIZED RATIO 2.7; PROTHROMBIN TIME 31.2 SEC (10.2-12.9)
[2017-05-20 05:15] LABS: DIGOXIN 0.6 ng/mL (0.8-2.0)
[2017-05-20 06:02] LABS: POINT-OF-CARE METER ID UU14162636
[2017-05-20 12:52] LABS: POINT-OF-CARE METER ID UU14162636
[2017-05-20 18:00] LABS: POINT-OF-CARE METER ID UU14162636
[2017-05-21] VITALS (33 sets, daily range): BP systolic 59–103; BP diastolic 31–70
[2017-05-21 00:46] LABS: POINT-OF-CARE METER ID UU14162636
[2017-05-21 06:01] LABS: POINT-OF-CARE METER ID UU14314083
[2017-05-21 07:59] LABS: EOSINOPHIL (%) 1.6 % (0-5); EOSINOPHIL COUNT 0.1 K/uL (0-0.3); IMMATURE GRANULOCYTE (%) 0.5 % (0.0-0.7); INSTRUMENT ABS NEUTROPHIL CT 6.1 K/uL; LYMPHOCYTE COUNT 0.9 K/uL (1.0-2.8); MCH 28.2 PG (29.0-34.0); MCHC 31.9 G/DL (30.0-36.0); MCV 88.5 FL (86-99); MONOCYTE (%) 12.3 % (3-12); NEUTROPHIL (%) 74.5 % (45-76); NEUTROPHIL COUNT 6.1 K/uL (1.8-6.4); RBC DIS.WIDTH-CV 22.1 % (11.8-14.6); RBC DIS.WIDTH-SD 71.2 % (39-53); RED BLOOD COUNT 4.18 M/uL (4.00-5.50); WHITE BLOOD COUNT 8.2 K/uL (4.1-10.2)
[2017-05-21 08:00] LABS: INTER. NORMALIZED RATIO 2.7; PROTHROMBIN TIME 31.2 SEC (10.2-12.9)
[2017-05-21 08:13] LABS: ANION GAP 11 MEQ/L (2-14); CHLORIDE 96 MEQ/L (99-109); GFR ESTIMATE (CALCULATED) 20 mL/min/; MAGNESIUM 3.2 mg/dl (1.3-2.7); POTASSIUM 3.6 MEQ/L (3.7-5.4); SAMPLE HEMOLYSIS CHECK 0; SAMPLE ICTERIC CHECK 1; SAMPLE LIPEMIA CHECK 0; SODIUM 131 MEQ/L (136-147); UREA NITROGEN (BUN) 95 mg/dL (9-23)
[2017-05-21 08:20] LABS: PLATELET COUNT 84 K/uL (156-360)
[2017-05-21 08:23] LABS: GLUCOSE 120 mg/dL (70-99)
[2017-05-21 12:29] LABS: POINT-OF-CARE METER ID UU14208751
[2017-05-21 17:55] LABS: POINT-OF-CARE METER ID UU14314083
[2017-05-21 23:39] LABS: CHLORIDE 98 mEq/L (99-109); POTASSIUM 3.7 mEq/L (3.7-5.4); SODIUM 130 mEq/L (136-147)
[2017-05-21 23:42] LABS: GLUCOSE 109 mg/dL (70-99)
[2017-05-21 23:43] LABS: ANION GAP 10 MEQ/L (2-14)
[2017-05-21 23:45] LABS: GFR ESTIMATE (CALCULATED) 21 mL/min/
[2017-05-21 23:46] LABS: UREA NITROGEN (BUN) 100 mg/dL (9-23)
[2017-05-21 23:55] LABS: MAGNESIUM 2.7 mg/dL (1.3-2.7)
[2017-05-22 00:30] VITALS: BP 74/42
[2017-05-22 00:33] LABS: POINT-OF-CARE METER ID UU14208751
[2017-05-22 01:30] VITALS: BP 70/44
[2017-05-22 02:00] VITALS: BP 77/44
[2017-05-22 03:00] VITALS: BP 83/57
[2017-05-22 04:00] VITALS: BP 87/62
== END 2017-05-22 04:53 | disposition short-term general hospital (02) | DRG 683 ==
LOC: EME 11:39 → 4WEST 14:38 → EDOF 14:38 → 4WEST 14:38 → CANRESERV 14:42 → ENRESERV 14:42 → EDOF 17:53 → 4WEST 18:24
PROVIDERS: Emergency Medicine; Internal Medicine Cardiovascular Disease; Internal Medicine Critical Care Medicine; Internal Medicine Nephrology; Specialist
DX: N17.9 Acute kidney failure, unspecified (principal); I13.0 Hypertensive heart and chronic kidney disease with heart failure and stage 1 through stage 4 chronic kidney disease, or unspecified chronic kidney disease; I50.42 Chronic combined systolic (congestive) and diastolic (congestive) heart failure; I50.82 Biventricular heart failure; E11.22 Type 2 diabetes mellitus with diabetic chronic kidney disease; N18.3 Chronic kidney disease, stage 3 (moderate); I95.89 Other hypotension; E83.41 Hypermagnesemia; E87.1 Hypo-osmolality and hyponatremia; I08.1 Rheumatic disorders of both mitral and tricuspid valves; I27.29 Other secondary pulmonary hypertension; I27.81 Cor pulmonale (chronic); I42.0 Dilated cardiomyopathy; I25.5 Ischemic cardiomyopathy; I47.1 Supraventricular tachycardia; I48.2 Chronic atrial fibrillation; I25.10 Atherosclerotic heart disease of native coronary artery without angina pectoris; R60.1 Generalized edema; E78.5 Hyperlipidemia, unspecified; R79.1 Abnormal coagulation profile; M10.9 Gout, unspecified; Z95.810 Presence of automatic (implantable) cardiac defibrillator; Z79.84 Long term (current) use of oral hypoglycemic drugs; Z87.891 Personal history of nicotine dependence
CPT/HCPCS: 71010; 76770; 76937; 80048; 80048 91; 80053; 80162; 81003; 82533 91; 82948; 83605; 83735; 83880; 84100; 84484; 85025; 85610; 85730; 87086; 87641; 93005; 94799; 99281; 99285; J1250; J1265; J1815; J1940; J2060; J2260; J7030; J7040